=== PATIENT | female | born 1955 | race Caucasian/White ===

== ENCOUNTER 2018-06-04 07:24 | Day surgery (SDC) | payer OTHER, BC ==
[2018-05-28 10:49] VITALS: BMI 30.5
[2018-06-04] MEDS ORDERED: PROPOFOL 20 ML ONE ×2 (07:32)
[2018-06-04 09:04] VITALS: TEMP 97.8
[2018-06-04 09:36] VITALS: BP 103/67; PULSE 59
--- NOTE | 2018-06-10 15:23 | PATH ---
Surgical Pathology Report Patient Name: KENIA EVANS [facility]. Rec. #: [id number] /Age/Gender: 1955 (Age: 63) / F Account: [id number] Location: [facility] Taken: 06/04/2018 Received: 06/04/2018 Reported: 06/10/2018 Physicians: Patrick Castellanos M.D. Specimen(s) Received RIGHT COLON POLYP Clinical History History of polyps and family history of colon cancer Postoperative diagnosis: Polyp, diverticulosis Final Diagnosis RIGHT COLON, POLYP, POLYPECTOMY: SESSILE SERRATED POLYP. Electronically Signed Destiny Saravia M.D. Gross Description Received in formalin, labeled "polyp right colon" is a chisholm, polypoid portion of soft tissue measuring 0.8 cm. in greatest dimension. The specimen is submitted in toto in one cassette. /06/05/201806/05/2018
== END 2018-06-04 09:35 | disposition home or self-care (01) ==
LOC: FASU-ENDO 07:24
PROVIDERS: ATTEND Internal Medicine Gastroenterology
PROC: 0DBK8ZX Excision of Ascending Colon, Via Natural or Artificial Opening Endoscopic, Diagnostic (ICD-10-PCS; principal; 2018-06-04 08:00)
DX: Z86.010 Personal history of colon polyps (principal); D12.2 Benign neoplasm of ascending colon; Z80.0 Family history of malignant neoplasm of digestive organs; K57.30 Diverticulosis of large intestine without perforation or abscess without bleeding
CPT/HCPCS: 88305-TC

== ENCOUNTER 2022-09-04 07:41 | Day surgery (SDC) | payer OTHER, BC ==
[2022-08-30 15:23] VITALS: BMI 24.6
[2022-09-04] MEDS ORDERED: PROPOFOL 80 ML ONE (07:58)
[2022-09-04 09:31] VITALS: TEMP 98
[2022-09-04 09:58] VITALS: RESP 16
[2022-09-04 09:59] VITALS: BP 118/60; PULSE 64
== END 2022-09-04 10:26 | disposition home or self-care (01) ==
LOC: FASU-ENDO 07:41
PROVIDERS: ATTEND Internal Medicine Gastroenterology
PROC: 0DBK8ZX Excision of Ascending Colon, Via Natural or Artificial Opening Endoscopic, Diagnostic (ICD-10-PCS; principal; 2022-09-04 09:12)
DX: Z12.11 Encounter for screening for malignant neoplasm of colon (principal); K63.5 Polyp of colon; K57.30 Diverticulosis of large intestine without perforation or abscess without bleeding; Z86.010 Personal history of colon polyps; Z80.0 Family history of malignant neoplasm of digestive organs
CPT/HCPCS: 88305-TC